=== PATIENT | female | born 1940 | race Caucasian/White ===

== ENCOUNTER 2024-05-30 12:38 | Emergency (ER) | payer MEDICARE, SELFPAY ==
[2024-05-30] VITALS (9 sets, daily range): BP systolic 162–180; BP diastolic 65–83; PULSE 70–99; RESP 16–19; TEMP 36.7–37.1; O2SAT 95–98; BMI 22.1
--- NOTE | 2024-05-30 12:55 | EDNOTE_ITS ---
<Statement entered by Hilda Dillon MD - 06/02/24 15:28> As co-signing physician, I was present and available for consult prn. I concur with the plan and care as documented by the midlevel provider. ED General RME/HPI General Chief complaint: Weakness Stated complaint: WEAKNESS Time Seen by Provider: 05/30/24 12:53 Arrival date/time: 05/30/24 12:38 CC: Weakness and chronic back pain HPI patient presents to the ER via EMS reports ports stable vital signs seen the patient has had generalized weakness. Along with chronic back pain that is 10 out of 10. The patient states she has arthritis in her spine and her pelvis. Patient was discharged 4 days ago from [facility] status post stroke, was not sent to rehab. Patient states that she is unable to get around secondary to weakness. Related Data Home Medications ?Medication ?Instructions ?Recorded ?Confirmed sucralfate 1 gram tablet (Carafate) 1 gm PO QID #0 tabs 03/03/17 05/30/24 alprazolam 0.5 mg tablet 0.25 mg PO TID 05/30/24 05/30/24 amiodarone 200 mg tablet 200 mg PO DAILY 05/30/24 05/30/24 apixaban 2.5 mg tablet (Eliquis) 2.5 mg PO BID 05/30/24 05/30/24 artificial tears solution eye drops 1 drp ophthalmic (eye) Q6HR 05/30/24 05/30/24 clopidogrel 75 mg tablet 75 mg PO DAILY 05/30/24 05/30/24 fluticasone furoate 100 100 mcg inhalation DAILY 05/30/24 05/30/24 mcg/actuation blister powder for inhalation ketoconazole 2 % topical cream 1 applic topical BID 05/30/24 05/30/24 meclizine 25 mg tablet 25 mg PO TID 05/30/24 05/30/24 meloxicam 15 mg tablet 15 mg PO DAILY 05/30/24 05/30/24 mirtazapine 15 mg tablet 15 mg PO QPM 05/30/24 05/30/24 ofloxacin 0.3 % eye drops 4 drp ophthalmic (eye) Q4HR 05/30/24 05/30/24 sennosides 8.6 mg-docusate sodium 2 tab-cap PO BID 05/30/24 05/30/24 50 mg tablet spironolactone 25 mg tablet 25 mg PO BID 05/30/24 05/30/24 zinc oxide 16 % topical ointment 1 applic topical BID 05/30/24 05/30/24 Previous Rx's ?Medication ?Instructions ?Recorded esomeprazole magnesium 20 mg 20 mg PO QDAY #30 caps 05/31/24 capsule,delayed release (Nexium) levothyroxine 100 mcg capsule 100 mcg PO QDAY #30 caps 05/31/24 ondansetron 4 mg disintegrating 4 mg PO TID #30 tabs 05/31/24 tablet Allergies Allergy/AdvReac Type Severity Reaction Status Date / Time bacitracin Allergy Unknown Verified 10/21/23 10:52 [From Neosporin ([id number])] milk Allergy Unknown Verified 10/21/23 10:52 neomycin Allergy Unknown Verified 10/21/23 10:52 [From Neosporin ([id number])] polymyxin B Allergy Unknown Verified 10/21/23 10:52 [From Neosporin ([id number])] Sulfa (Sulfonamide Allergy Unknown SWELLING Verified 10/21/23 10:52 Antibiotics) OF MUCOUS MEMBRANES Review of Systems Review of Systems Narrative Review of Systems: GEN: No fever, no chills, no weight loss EYES: No discharge, no visual changes, no pain HEENT: No ear pain, no congestion, no sore throat PULM: No shortness of breath, no cough, no congestion CV: No chest pain, no dyspnea on exertion, no palpitations GI: No nausea, no vomiting, no diarrhea, no pain, no constipation : No frequency, no urgency, no dysuria MUSC/SKEL: No joint pain, +back pain SKIN: No rash PSYCH: No hallucinations, no depression HEME/LYMPH: No easy bleeding or bruising tendencies NEURO: + weakness, no headache Past Medical History Past Medical History NEUROLOGIC: Positive Neurological Disorders and Cerebrovascular Accident (x3 ministrokes); Negative Seizures CARDIAC: Positive Cardiac Disorders, Atrial Fibrillation, Hypercholesterolemia and Hypertension; Negative Congestive Heart Failure RESPIRATORY: Positive Asthma (on bipap) and Pneumonia (1999); Negative Chronic Obstructive Pulmonary Disease (COPD) GASTROINTESTINAL: Positive Gastrointestinal Disorders and Ulcer; Negative Hepatitis GENITOURINARY: Positive Genitourinary Disorders (UTI); Negative Renal Disease REPRODUCTIVE: Positive Previous Pregnancies MUSCULOSKELETAL: Positive Musculoskeletal Disorders and Arthritis ENT: Positive Cataracts (right) ENDOCRINE: Positive Endocrine Disorders; Negative Diabetes Mellitus Type 1 or Diabetes Mellitus Type 2 HEMATOLOGIC: Negative Blood Disorders or Sickle Cell Disease PSYCHO/SOCIAL: Positive Anxiety (Panic attacks) OTHER HISTORY: Positive Hospitalization (CVA), Chicken Pox, Measles and Mumps; Negative Autoimmune Disease, Shingles, Blood Transfusions, Blood Transfusion Reaction, Anesthesia Reactions or Cancer Family History FAMILY HISTORY: Positive Family Cancer and Family Surgery; Negative Family Neurologic Problems, Family Psychiatric Problems, Family Respiratory Disorders, Family Cardiac Disorders, Family Gastrointestinal Problems or Family Anesthesia Reaction Surgical History SURGICAL: Positive Tonsillectomy, Abdominal Surgery and Hysterectomy Social History SMOKING STATUS: Unknown if ever smoked SUBSTANCE USE: does not use ED Exam Narrative Physical exam: [General: Thin, frail, not in any acute distress Head normocephalic HEENT: Eyes pupils are PERRLA EOMs are intact mouth dry pink membranes uvula is midline swallow symmetrical nose no rhinorrhea epistaxis. All other subsystems of HEENT are within acceptable limits Neck is supple nontender Chest equal chest rise nontender to palpation Respiratory: Clear to auscultation no wheezes crackles or rubs CV: Rate rhythm is irregular no murmurs rubs or clicks Abdomen is soft nontender no masses positive bowel sounds all 4 quadrants Back: No CVA tenderness no spinous process tenderness from cervical spine thoracic and lumbar spine Skin: Numerous ecchymotic areas on her forearms secondary to suspected IV access in various stages of resolution otherwise skin is intact no petechiae rash induration ulceration or crepitus Extremities: Moving all extremities weakly against resistance cap refill less than 2 seconds neurosensory intact Neuro: Awake alert oriented x2, person and place, Glascow coma 15 no focal deficits] Course Course Course Narrative: Patient has no acute finding that requires emergent or immediate intervention. Patient's case discussed with family patient is not comfortable going home as she is nonambulatory and has had trouble recovering since her hip fracture in October but particularly since discharge 3 days ago from [facility] for stroke. Spoke with case management who states the patient is eligible for placement. Order the PT eval which will probably take place in the morning of May 31. After 28 hours in the emergency room it was determined that the patient has exhausted all her options for home health stays. And nobody will accept her for long-term management at this time we are forced to discharge her home with a home health order, will refill some of the prescriptions for the patient she remains awake alert and oriented clear mind. Quality Measures none Orders Category Date Time Status Home Health Referral Routine Cons 05/31/24 16:08 Active Referral Physical Therapy Stat Cons 05/30/24 16:22 Completed Diet Regular Diet 05/31/24 Breakfast Active CBC Stat Lab 05/30/24 13:26 Completed CMP [Comprehensive Metabolic Panel] Stat Lab 05/30/24 13:26 Completed Urinalysis Stat Lab 05/30/24 15:18 Completed Urinalysis, C/S if Indicated Stat Lab 05/30/24 15:18 Completed HYDROcodone*/APAP 5/325 [[place]over 5/325] Med 05/31/24 06:56 Discontinued 1 tab PO X1 ONE HYDROcodone*/APAP 5/325 [Wendover 5/325] Med 05/31/24 12:25 Discontinued 1 tab PO X1 ONE Ondansetron Inj [Zofran Inj] Med 05/31/24 12:25 Discontinued 4 mg IV X1 ONE Ondansetron Odt [Zofran Odt] Med 05/30/24 16:43 Discontinued 4 mg PO X1 ONE Ondansetron Odt [Zofran Odt] Med 05/30/24 21:57 Discontinued 4 mg PO X1 ONE Ondansetron Odt [Zofran Odt] Med 05/31/24 12:51 Discontinued 4 mg PO X1 ONE oxyCODONE/APAP 5/325 [Percocet 5/325] Med 05/30/24 15:45 Discontinued 1 tab PO X1 ONE oxyCODONE/APAP 5/325 [Percocet 5/325] Med 05/30/24 21:57 Discontinued 1 tab PO X1 ONE Late Tray Request Routine Oth 05/31/24 08:34 Active Late Tray Request Routine Oth 05/31/24 12:51 Active Vital Signs Vital signs: Vital Signs Temperature 98.1 F 05/30/24 12:42 Pulse Rate 71 05/30/24 12:42 Respiratory Rate 18 05/30/24 12:42 Blood Pressure 180/65 H 05/30/24 12:42 Pulse Oximetry (%) 97 05/30/24 12:42 Oxygen Delivery Method Room Air 05/30/24 12:42 [facility] Patient data External records reviewed:: [facility] previous records and EMS form Clinical information provided by:: patient and EMS Social determinants that could affect healthcare access:: none Patient has the following chronic illnesses:: A-fib on Eliquis TIA coronary artery disease hypertension peptic ulcers disease rheumatoid arthritis anxiety agoraphobia recent hip fracture in October 2023 How is presenting disease/condition affected by chronic disease/condition?: e xacerbated by Evaluation data The following diagnostics were reviewed and interpreted by me:: lab results and radiology exam(s) Lab and/or radiology exams considered but not ordered:: CBC shows no acute leukocytosis anemia thrombocytopenia CMP shows no acute electrolyte imbalances renal impairment transaminitis or T. bili elevation Urine is negative for UTI Interpretation Summary: Upon reviewing the laboratory results that showed no acute finding the patient medially focused on her chronic back pain worse wishing pain medications. Family member at bedside states the patient sits on her couch all day. At this point as the patient freely admits there was no rehab hours left after discharge from [facility] secondary to a CVA. Medications Medications considered but not ordered:: None Medication administrations:: Medication Administration History Discontinued Medications Hydrocodone Bitart/Acetaminophen (Hydrocodone/Apap 5/325 Tablet) 1 tab PO X1 ONE Stop: 05/31/24 06:57 Last Admin: 05/31/24 07:02 Dose: 1 tab Documented By: EF Hydrocodone Bitart/Acetaminophen (Hydrocodone/Apap 5/325 Tablet) 1 tab PO X1 ONE Stop: 05/31/24 12:26 Last Admin: 05/31/24 12:48 Dose: 1 tab Documented By: MP Ondansetron HCl (Ondansetron Odt 4 Mg Tabrap) 4 mg PO X1 ONE; Protocol Stop: 05/30/24 16:44 Last Admin: 05/30/24 16:51 Dose: 4 mg Documented By: GM Ondansetron HCl (Ondansetron Odt 4 Mg Tabrap) 4 mg PO X1 ONE; Protocol Stop: 05/30/24 21:58 Last Admin: 05/30/24 22:05 Dose: 4 mg Documented By: EF Ondansetron HCl (Ondansetron Inj 2 Mg/Ml Inj 2 Ml) 4 mg IV X1 ONE; Protocol Stop: 05/31/24 12:26 Last Admin: 05/31/24 13:33 Dose: Not Given Documented By: BECKY Non-Admin Reason: No IV access Ondansetron HCl (Ondansetron Odt 4 Mg Tabrap) 4 mg PO X1 ONE; Protocol Stop: 05/31/24 12:52 Last Admin: 05/31/24 12:57 Dose: 4 mg Documented By: BECKY Oxycodone/Acetaminophen (Oxycodone/Apap 5/325 Tablet) 1 tab PO X1 ONE Stop: 05/30/24 15:46 Last Admin: 05/30/24 17:24 Dose: 1 tab Documented By: GM Oxycodone/Acetaminophen (Oxycodone/Apap 5/325 Tablet) 1 tab PO X1 ONE Stop: 05/30/24 21:58 Last Admin: 05/30/24 22:05 Dose: 1 tab Documented By: EF None Consultations Consultation(s) initiated? (list below): No Diagnosis Differential Diagnosis ED Complaint MDM: Deconditioning weakness electrolyte imbalance Most likely diagnosis given after review of the tests above:: Deconditioning weakness Admission Indicated Admission indicated?: not indicated Explain why admission is indicated or not indicated:: Stable for discharge Admission Request Was there a request for admission?: No Disposition Plan Disposition Plan: Discharge Discharge Attestation Discharge Attestation: The patient and all family members were given an opportunity to ask questions and understood the discharge instructions. Discharge instructions specifically effects, indications for sooner follow up or return to the emergency department, and the expected course of current diagnosis. Patient condition: Stable Medical Decision Making Differential Diagnosis Differential Diagnosis: Deconditioning weakness electrolyte imbalance Lab Data 05/30/24 13:26 05/30/24 13:26 Labs: Lab Results 05/30/24 05/30/24 Range/Units 13:26 15:18 WBC 9.1 (3.6-11.0) Thou/mm3 RBC 4.43 (4.00-5.20) Miln/mm3 Hgb 12.1 (12.0-16.0) g/dL Hct 36.5 (36.0-46.0) % MCV 82 (80-100) fL MCH 27.3 (25.0-35.0) pg MCHC 33.2 (31.0-37.0) g/dl RDW Std Deviation 46.6 H (36.4-46.3) fL Plt Count 482 H (140-440) Thou/mm3 Neut % (Auto) 77 (37-80) % Lymph % (Auto) 15 (10-50) % Gladwin % (Auto) 6 (0-12) % Eos % (Auto) 1 (0-10) % Baso % (Auto) 1 (0-2.5) % Neut # (Auto) 7.0 (1.8-7.7) Thou/mm3 Lymph # (Auto) 1.4 (1.0-4.8) Thou/mm3 Gladwin # (Auto) 0.6 (0.0-0.8) Thou/mm3 Eos # (Auto) 0.1 (0.0-0.5) Thou/mm3 Baso # (Auto) 0.1 (0.0-0.2) Thou/mm3 Immature Gran # (Auto) 0.03 H (0.00-0.00) Thou/mm3 Absolute Nucleated RBC 0.00 (0.00-0.00) Thou/mm3 Immature Gran % 0 (0-0) % Nucleated RBC % 0 (0) /100 WBC Sodium 134 L (136-145) mMol/L Potassium 3.8 (3.4-5.1) mMol/L Chloride 95 L (98-107) mMol/L Carbon Dioxide 29.8 (20.0-31.0) mMol/L Anion Gap 9 (7-16) BUN 19 (9-23) mg/dL Creatinine 1.4 H (0.6-1.3) mg/dL Estim Creat Clear Calc 28.0 L (>60) mL/min eGFR 37 L (60 - ) See Note BUN/Creatinine Ratio 14 (12-20) Ratio Glucose 91 (74-106) mg/dL Calculated Osmolality 270 L (275-295) Calcium 9.7 (8.3-10.6) mg/dL Corrected Calcium 9.7 (8.5-10.1) mg/dL Total Bilirubin 0.4 (0.3-1.2) mg/dL AST 28 (0-34) U/L ALT 20 (10-49) U/L Alkaline Phosphatase 101 (46-116) U/L Total Protein 7.3 (5.7-8.2) gm/dL Albumin 4.7 (3.4-4.8) gm/dL Globulin 2.6 (2.3-3.5) gm/dL Albumin/Globulin Ratio 1.8 (1.2-2.2) Ur Collection Type Clean Catch Urine Color Yellow (Lt Yel-Yel) Urine Clarity Clear (Clear/Hazy) Urine pH 6.0 (5.0-7.0) Ur Specific Woodson 1.016 (1.001-1.035) Urine Protein Trace (Neg - Trace) Urine Glucose (UA) Negative (Negative) Urine Ketones Trace (Negative) Urine Blood Negative (Negative) Urine Nitrite Negative (Negative) Urine Bilirubin Negative (Negative) Urine Urobilinogen (Auto) Negative (0.0-1.0) mg/dL Ur Leukocyte Esterase Negative (Negative) Urine RBC 3 (0-3) /hpf Urine WBC < 1 (0-5) /hpf Ur Squamous Epith Cells 0 (0-5) /hpf Urine Bacteria None (None) Ur Culture Indicated? Not Indicated Discharge Plan Plan Patient Disposition: HOME (Self Care) Patient condition on transfer: Stable Prescriptions/Referrals Prescriptions/Med Rec: New levothyroxine 100 mcg capsule 100 mcg PO QDAY Qty: 30 1RF esomeprazole magnesium [Nexium] 20 mg capsule,delayed release(DR/EC) 20 mg PO QDAY Qty: 30 1RF ondansetron 4 mg tablet,disintegrating 4 mg PO TID Qty: 30 1RF No Action sucralfate [Carafate] 1 G tablet 1 gm PO QID Qty: 0 ofloxacin 0.3 % drops 4 drp ophthalmic (eye) Q4HR Rx Instructions: APPLY 4 DROPS TO LEFT EYE EVERY 4 HOURS amiodarone 200 mg tablet 200 mg PO DAILY meloxicam 15 mg tablet 15 mg PO DAILY Patient Comments: TAKE 1 TABLET BY MOUTH EVERY DAY sennosides-docusate sodium [Sennalax-S] 8.6-50 mg Tablet 2 tab-cap PO BID artificial tears solution Drops 1 drp OPHTHALMIC (EYE) Q6HR clopidogrel 75 mg tablet 75 mg PO DAILY spironolactone 25 mg Tablet 25 mg PO BID meclizine 25 mg Tablet 25 mg PO TID mirtazapine 15 mg tablet 15 mg PO QPM ketoconazole 2 % Cream 1 applic TOPICAL BID zinc oxide 16 % Ointment 1 applic TOPICAL BID Eliquis 2.5 mg tablet 2.5 mg PO BID fluticasone furoate 100 mcg/actuation Blister With Device 100 mcg INHALATION DAILY alprazolam 0.5 mg tablet 0.25 mg PO TID Referrals: Gisele Ching MD [Primary Care Provider] - In 1 week Problem List Clinical Impression: Weakness, Physical deconditioning Patient/Caregiver Discharge Instructions Education Materials: ED Weakness (Uncertain Cause), Chronic Health Condition Coping Additional Instructions: Follow-up with your primary care provider Print Language: Hong Konger Stand Alone Forms: [employer] Award Info., Patient Portal Info Letter PA/CURTAIN CUTTER Supervising Physician PA/CURTAIN CUTTER Supervising Physician: Rios Sladana ENP
[2024-05-30 13:41] LABS: Basophils # (Auto) 0.1 Thou/mm3 (0.0-0.2); Basophils % (Auto) 1 % (0-2.5); Eosinophils # (Auto) 0.1 Thou/mm3 (0.0-0.5); Eosinophils % (Auto) 1 % (0-10); Hematocrit 36.5 % (36.0-46.0); Hemoglobin 12.1 g/dL (12.0-16.0); Immature Granulocytes % (Auto) 0 % (0-0); Immature Granulocytes Auto 0.03 Thou/mm3 (0.00-0.00); Lymphocytes # (Auto) 1.4 Thou/mm3 (1.0-4.8); Lymphocytes % (Auto) 15 % (10-50); Mean Corpuscular HGB Conc 33.2 g/dl (31.0-37.0); Mean Corpuscular Hemoglobin 27.3 pg (25.0-35.0); Mean Corpuscular Volume 82 fL (80-100); Monocytes # (Auto) 0.6 Thou/mm3 (0.0-0.8); Monocytes % (Auto) 6 % (0-12); Neutrophils % (Auto) 77 % (37-80); Nucleated Red Blood Cell % 0 /100 WBC (0); Platelet Count 482 Thou/mm3 (140-440); RDW Standard Deviation 46.6 fL (36.4-46.3); Red Blood Count 4.43 Miln/mm3 (4.00-5.20); White Blood Count 9.1 Thou/mm3 (3.6-11.0)
[2024-05-30 14:04] LABS: Alanine Aminotransferase 20 U/L (10-49); Albumin, Serum 4.7 gm/dL (3.4-4.8); Albumin/Globulin Ratio 1.8 (1.2-2.2); Alkaline Phosphatase 101 U/L (46-116); Anion Gap 9 (7-16); Aspartate Amino Transferase 28 U/L (0-34); BUN/Creatinine Ratio 14 Ratio (12-20); Bilirubin,Total 0.4 mg/dL (0.3-1.2); Blood Urea Nitrogen 19 mg/dL (9-23); Calcium 9.7 mg/dL (8.3-10.6); Calcium (Corrected) 9.7 mg/dL (8.5-10.1); Carbon Dioxide 29.8 mMol/L (20.0-31.0); Chloride 95 mMol/L (98-107); Creatinine (Component) 1.4 mg/dL (0.6-1.3); Globulin 2.6 gm/dL (2.3-3.5); Glucose 91 mg/dL (74-106); Osmolality,Calculated 270 (275-295); Potassium 3.8 mMol/L (3.4-5.1); Sodium 134 mMol/L (136-145); Total Protein 7.3 gm/dL (5.7-8.2); eGFR 37 See Note
--- NOTE | 2024-05-30 15:20 | PC.NURSE ---
PT HAD BM; PT GIVEN PERINEAL CARE WITH WARM BATH CLOTHS ANG LINEN CHANGE PERFORMED.
[2024-05-30 15:25] LABS: Collection Type, Urine Clean Catch; Squamous Epithelial Cell,Urine 0 /hpf (0-5)
[2024-05-30 15:31] LABS: Bilirubin,Urine Negative (Negative); Blood,Urine Negative (Negative); Clarity,Urine Clear (Clear/Hazy); Color,Urine Yellow (Lt Yel-Yel); Culture Indicated,Urine Not Indicated; Glucose, Urine Negative (Negative); Ketones,Urine Trace (Negative); Leukocyte Esterase,Urine Negative (Negative); Nitrite,Urine Negative (Negative); Protein,Urine Trace (Neg - Trace); RBC,Urine 3 /hpf (0-3); Specific Gravity,Urine 1.016 (1.001-1.035); Urobilinogen,Urine Negative mg/dL (0.0-1.0); WBC,Urine < 1 /hpf (0-5)
[2024-05-30] MEDS: ONDANSETRON ODT 4 MG TABRAP PO ×2 (16:51→22:05)
[2024-05-30] MEDS: oxyCODONE/APAP 5/325 TABLET 1 TAB PO ×2 (17:24→22:05)
--- NOTE | 2024-05-30 19:18 | PC.CC ---
Pt Lolis Ruvalcaba is an 83 yr old female to ED for weakness. ASW approached by ED provider Les, as pt is unable to ambulate and is a high fall risk. ASW informed that pt recently D/c from [facility] on 05/27/2024. ASW met with pt and daughter Vanessa Escobar [phone] at bedside. ASW introduced self and role in pt care. Per pts family pt was admitted to [facility] for the last 2 months and D/c home on 05/27/2024. Per pt and family pt has remained on her couch for the last 3 days being unable to ambulate. Per pt she was told at [facility] that she had exhausted her Medicare days and was being D/c. Per pt and her family SNF was not offered. ASW was able to attain copy of D/c packet from [facility]. Pts primary choice is [facility], where pt has been in the past. Per pts family members pt has been awarded [facility] pending number assignment at this time. Family inquired about usp placement. ASW informed family that initial request will be for short term placement, with potential for usp, pending bed availability. Family in agreement with plan. Pt is pending PT eval. PASRR pending Level II clearance. Pt with hx of anxiety on medication. No hx of DD/ID, no involvement with [facility].
--- NOTE | 2024-05-30 21:40 | PC.NURSE ---
PT BRIEF AND LINEN CHANGED. PT PLACED ON WAFFLE MATTRESS FOR COMFORT.
[2024-05-31] VITALS (9 sets, daily range): BP systolic 129–162; BP diastolic 63–85; PULSE 64–71; RESP 16–20; TEMP 36.8–36.9; O2SAT 94–98
--- NOTE | 2024-05-31 00:31 | PD.EDADDENDU ---
Emergency Room Addendum Addendum Narrative: 2300: Care assumed from Rios Saldana NP. Past medical, surgical, social and family history reviewed. Vitals and home medications reviewed. Results and treatment plan discussed. I will assume the care of the patient at this time and will follow the patient, pending PT evaluation and SNF placement. Please refer to the emergency department record for history and examination from initial visit. The patient was placed in ED observation care at 05/30/24 at 2300 hours. The patient was placed in ED observation care because of pending PT evaluation and SNF placement. The patients past medical history, social history, and family history were reviewed. The plan of care will include serial examinations. 0600: Care signed out to Dr. Dillon (emergency physician). Past medical, surgical, social and family history reviewed. Vitals and home medications reviewed. Results and treatment plan discussed. They will assume the care of the patient at this time and will follow the patient, pending PT evaluation and SNF placement. At this time, observation has ended.
--- NOTE | 2024-05-31 06:56 | PD.EDADDENDU ---
Emergency Room Addendum <Thea Pizarro - Last Filed: 05/31/24 09:56> Addendum Narrative: 0600: Care assumed from , the previous shift emergency physician. Past medical, surgical, social and family history reviewed. Vitals and home medications reviewed. I will assume the care of the patient at this time, pending PT evaluation for possible placement. Please refer to the emergency department record for history and examination from initial visit.? Nursing notes reviewed by me. Vital signs reviewed by me. [facility] medical records reviewed by me. I reviewed initial H&P from yesterday 05/30/2024. <Marlena Leone - Last Filed: 05/31/24 19:17> Addendum Narrative: 0600: Care assumed from , the previous shift emergency physician. Past medical, surgical, social and family history reviewed. Vitals and home medications reviewed. I will assume the care of the patient at this time, pending PT evaluation for possible placement. Please refer to the emergency department record for history and examination from initial visit.? Nursing notes reviewed by me. Vital signs reviewed by me. [facility] medical records reviewed by me. I reviewed initial H&P from yesterday 05/30/2024. 1845: Patient was discharged, EMS picked up the patient. Diagnoses: Weakness, physical deconditioning.
[2024-05-31] MEDS: HYDROcodone/APAP 5/325 TABLET 1 TAB PO ×2 (07:02→12:48)
--- NOTE | 2024-05-31 07:32 | PC.CC ---
Addendum entered by Lanre Purdy II 05/31/24 18:50: Home Health referral booked with [facility]-pending SOC. DME-wheelchair accepted by [facility]. Delivery 06/01/24. Addendum entered by Lanre Purdy II 05/31/24 18:48: 1027-ASW spoke with Mayda with [facility]-no custodial care bed available. Per Mayda she will follow up with ASW if [facility] is able to accommodate placement. Addendum entered by Lanre Purdy II 05/31/24 18:34: 1332-Message left for [facility]. 1340-Call back from [facility]-Level II cleared. Pt accepted to [facility]-presented to pt and pt accepts placement. 1441-Call to [facility] to confirm acceptance. Request that ASW confirm pt has cleared 60 Wellness days outside of. ASW met with pt and her daughter at bedside. Pt placed at [facility] in 11/2023 and remained in [facility] for 100 days. Pt then transitioned home where she remained for a few weeks. Pt then admitted to [facility] following stroke, where pt remained for 60 days D/cing 05/27/24 to her home. 1433-Call to [facility], who states [facility] unable to accept for custodial due to no beds. ASW asked pt registration to run pts [facility]. Pts [facility] is active with no policy number assigned at this time. ASW again met with pt and family at bedside to provide update. ASW at this time offered pt transport home, home health referral and DME request for 3-in 1 commode and wheel chair. Pt and family are agreeable to plan. Family is aware that pt is able to return to ED at any time for any medical concerns. Family has been educated that pt will need 60 Wellness days outside of an acute care setting and SNF for Medicare days to renew. 1632-Call to [facility] for transport. 1654-Call from [facility] with 1845 transport ETA. Original Note: Pt Lolis Ruvalcaba is an 83 yr old female, holding in ED for SNF placement. Pt had recent 60 day stay at [facility] following stroke. Pt D/c home on 05/27/24. Pt experienced increased weakness and was unable to get off her couch for last 3 days. Pt and family are requesting SNF placement for rehab and potential moth exterminator placement. PASRR has been completed pending Level II clearance. Clinical packet has been uploaded to [facility]. [facility] is currently considering-inquired if pt has been hospitalized within the last 30 days. ASW responded to inquiry. Pt pending PT eval in ED this morning.
--- NOTE | 2024-05-31 09:00 | PC.NURSE ---
PT at bedside for eval.
[2024-05-31] MEDS: ONDANSETRON ODT 4 MG TABRAP PO ×2 (12:57→18:38)
--- NOTE | 2024-05-31 16:03 | PC.CC ---
Patients diagnosis creates mobility limitations that significantly impairs ability to participate in the patient?s activities of daily living either in their entirety, or in a reasonable time frame in the home and the patient?s mobility limitations cannot be sufficiently resolved with an appropriately fitted cane or walker. Also the use of a manual wheelchair will sufficiently improve patient?s ability to participate in the activities of daily living in the home and the patient is willing to use the wheelchair that is provided in the home. The patient has some one in the home that is available, willing and able to provide assistance with the wheelchair.
--- NOTE | 2024-05-31 16:04 | PC.CC ---
Patient is physically incapable of utilizing regular toilet facilities because his or her diagnosis confines the patient to a single room. Patient is confined to a single level, and there is no toilet on that level; patient cannot access the toilet facilities in a timely manner due to lack of ambulation.
== END 2024-05-31 19:07 | disposition home or self-care (01) ==
PROVIDERS: Registered Nurse General Practice; Emergency Provider Emergency Medicine; PCP Family Medicine
DX: R53.1 Weakness (principal); M47.9 Spondylosis, unspecified; Z86.73 Personal history of transient ischemic attack (TIA), and cerebral infarction without residual deficits
CPT/HCPCS: 36415; 80053; 81001; 85025; 99284; J2405; Q0162; A9270

== ENCOUNTER 2024-06-07 12:38 | Emergency (ER) | payer MEDICARE, MEDICAID, SELFPAY ==
[2024-06-07 12:39] VITALS: PULSE 76; RESP 16; O2SAT 98
[2024-06-07 13:08] VITALS: BP 147/78; PULSE 76; RESP 16; TEMP 37; O2SAT 96
--- NOTE | 2024-06-07 13:19 | XR_ITS ---
Examination: CT lumbar spine, without contrast. 2-D sagittal reconstructions. 2-D coronal reconstructions. 3-D reconstructions. Date and time of exam:June 07, 2024 1351 hours INDICATIONS: Onset lower back pain beginning 3 days ago CTDI: vol (mGy):14.8 DLP: (mGycm):489 Technique: Multiple 1.25 mm axial sections of the lumbar spine without intravenous contrast have been obtained. 2-D sagittal and coronal reconstructions have been obtained. 3-D reconstructions have been obtained. Low dose protocols were performed. One or more of the following dose reduction techniques were used; automated exposure control, adjustment of the mA and/or KV according to patient size, use of iterative reconstruction technique. Findings: Severe osteopenia Grade 1 anterolisthesis L4 on L5 Moderate disc narrowing L5-S1 No lumbar vertebral body compression fracture Lumbar pedicles, laminae, transverse and posterior spinous processes intact L5-S1 2 mm central lumbar disc bulge L4-L5 moderate overall spinal stenosis, secondary to the anterolisthesis, 6 mm central lumbar disc bulge, facet arthropathy and thickening of ligamentum flavum L3-L4 no disc protrusion L2-L3 no disc protrusion L1-L2 no disc protrusion Small benign lower pole left renal cyst IMPRESSION: No lumbar fracture L4-L5 moderate overall spinal stenosis secondary to grade 1 anterolisthesis, 6 mm central lumbar disc bulge, facet arthropathy and thickening of ligamentum flavum Consider elective MRI lumbar spine without contrast follow-up
--- NOTE | 2024-06-07 13:20 | PD.EDRME ---
Rapid Medical Screening Exam RME Arrival date/time: 06/07/24 12:38 83-year-old female presents emerged part today complaints of pain patient reports pain is worse with movement patient is here with her family who is requesting to have placement in a long-term care facility Vital signs: Vital Signs Temperature 98.6 F 06/07/24 13:08 Pulse Rate 76 06/07/24 13:08 Respiratory Rate 16 06/07/24 13:08 Blood Pressure 147/78 H 06/07/24 13:08 Pulse Oximetry (%) 96 06/07/24 13:08 Oxygen Delivery Method Room Air 06/07/24 13:08
[2024-06-07] MEDS: HYDROcodone/APAP 5/325 TABLET 1 TAB PO ×2 (14:08→22:47)
[2024-06-07 15:48] LABS: Collection Type, Urine Clean Catch
[2024-06-07 15:48] LABS: Basophils # (Auto) 0.1 Thou/mm3 (0.0-0.2); Basophils % (Auto) 1 % (0-2.5); Eosinophils # (Auto) 0.1 Thou/mm3 (0.0-0.5); Eosinophils % (Auto) 1 % (0-10); Hemoglobin 12.4 g/dL (12.0-16.0); Immature Granulocytes % (Auto) 0 % (0-0); Immature Granulocytes Auto 0.04 Thou/mm3 (0.00-0.00); Lymphocytes # (Auto) 1.8 Thou/mm3 (1.0-4.8); Lymphocytes % (Auto) 16 % (10-50); Mean Corpuscular HGB Conc 33.5 g/dl (31.0-37.0); Mean Corpuscular Hemoglobin 27.2 pg (25.0-35.0); Mean Corpuscular Volume 81 fL (80-100); Monocytes # (Auto) 0.7 Thou/mm3 (0.0-0.8); Monocytes % (Auto) 6 % (0-12); Neutrophils # (Auto) 8.4 Thou/mm3 (1.8-7.7); Neutrophils % (Auto) 76 % (37-80); Nucleated Red Blood Cell % 0 /100 WBC (0); Platelet Count 425 Thou/mm3 (140-440); RDW Standard Deviation 48.4 fL (36.4-46.3); Red Blood Count 4.56 Miln/mm3 (4.00-5.20); White Blood Count 11.1 Thou/mm3 (3.6-11.0)
[2024-06-07 16:12] LABS: Alanine Aminotransferase 13 U/L (10-49); Albumin, Serum 4.7 gm/dL (3.4-4.8); Albumin/Globulin Ratio 1.7 (1.2-2.2); Alkaline Phosphatase 81 U/L (46-116); Anion Gap 10 (7-16); Aspartate Amino Transferase 24 U/L (0-34); BUN/Creatinine Ratio 16 Ratio (12-20); Bilirubin,Total 0.3 mg/dL (0.3-1.2); Blood Urea Nitrogen 23 mg/dL (9-23); Calcium 9.3 mg/dL (8.3-10.6); Calcium (Corrected) 9.3 mg/dL (8.5-10.1); Carbon Dioxide 26.7 mMol/L (20.0-31.0); Chloride 95 mMol/L (98-107); Creatinine (Component) 1.4 mg/dL (0.6-1.3); Globulin 2.8 gm/dL (2.3-3.5); Glucose 111 mg/dL (74-106); Osmolality,Calculated 269 (275-295); Potassium 3.6 mMol/L (3.4-5.1); Sodium 132 mMol/L (136-145); Total Protein 7.5 gm/dL (5.7-8.2); eGFR 37 See Note
[2024-06-07 16:14] LABS: Bacteria,Urine 1+; Bilirubin,Urine Negative (Negative); Blood,Urine 1+ (Negative); Color,Urine Yellow (Lt Yel-Yel); Glucose, Urine Negative (Negative); Ketones,Urine Negative (Negative); Leukocyte Esterase,Urine Positive (Negative); Nitrite,Urine Negative (Negative); PH,Urine 8.5 (5.0-7.0); Protein,Urine 2+ (Neg - Trace); RBC,Urine 58 /hpf (0-3); Specific Gravity,Urine 1.022 (1.001-1.035); Squamous Epithelial Cell,Urine 1 /hpf (0-5); Urobilinogen,Urine Negative mg/dL (0.0-1.0); WBC,Urine 114 /hpf (0-5)
[2024-06-07 16:17] LABS: Clarity,Urine Turbid (Clear/Hazy); Culture Indicated,Urine Yes
[2024-06-07 17:24] VITALS: BP 164/89; PULSE 72; RESP 18; TEMP 36.6; O2SAT 98
--- NOTE | 2024-06-07 17:28 | PC.CC ---
Pt Lolis Ruvalcaba is an 83 yr old female to ED for generalized weakness. Pt seen in ED last week by ASW with family and pt requesting [facility] placement. At the time pt had no Medicare days available. Pts applied and was granted [employer], which is now active. Pt and family are requesting [facility] care placement. At this time pt still has no Medicare days available. From my last encounter pt would like to remain local, but ASW has explained that pt may need to agree for senior living care bed outside of [facility]. Pt has been to [facility] and that is pts primary choice for placement.
--- NOTE | 2024-06-07 19:17 | PD.EDADULT ---
ED General RME/HPI General Chief complaint: Weakness Stated complaint: GENERALIZED WEAKNESS/PAIN/NO SLEEP Time Seen by Provider: 06/07/24 19:18 Arrival date/time: 06/07/24 12:38 Limitations: no limitations RME / HPI RME / HPI narrative: 06/07/24 12:38 83-year-old female presents emerged part today complaints of pain patient reports pain is worse with movement patient is here with her family who is requesting to have placement in a long-term care facility DR. HAWKINS MAIN ED EVALUATION: 83 year old female presents to the Emergency Department BIBA for placement. She was at a long-term care at [facility] for hip fracture but they released her due to medical insurance problems and at home she cannot take care of herself and there is no one to care for the patient at home. Patient cannot bear weight and is incontinent, wears a diaper. No new trauma. Takes [place] for chronic back pain and chronic hip pain. PMHx: Atrial fibrillation on Eliquis, recent diagnosis of coccidiomycosis, TIA, coronary artery disease, hypertension, peptic ulcer disease, rheumatoid arthritis, anxiety, agoraphobia. Social Hx: No tobacco, alcohol, or substance use. Related Data Home Medications ?Medication ?Instructions ?Recorded ?Confirmed sucralfate 1 gram tablet (Carafate) 1 gm PO QID #0 tabs 03/03/17 05/30/24 alprazolam 0.5 mg tablet 0.25 mg PO TID 05/30/24 05/30/24 amiodarone 200 mg tablet 200 mg PO DAILY 05/30/24 05/30/24 apixaban 2.5 mg tablet (Eliquis) 2.5 mg PO BID 05/30/24 05/30/24 artificial tears solution eye drops 1 drp ophthalmic (eye) Q6HR 05/30/24 05/30/24 clopidogrel 75 mg tablet 75 mg PO DAILY 05/30/24 05/30/24 fluticasone furoate 100 100 mcg inhalation DAILY 05/30/24 05/30/24 mcg/actuation blister powder for inhalation ketoconazole 2 % topical cream 1 applic topical BID 05/30/24 05/30/24 meclizine 25 mg tablet 25 mg PO TID 05/30/24 05/30/24 meloxicam 15 mg tablet 15 mg PO DAILY 05/30/24 05/30/24 mirtazapine 15 mg tablet 15 mg PO QPM 05/30/24 05/30/24 ofloxacin 0.3 % eye drops 4 drp ophthalmic (eye) Q4HR 05/30/24 05/30/24 sennosides 8.6 mg-docusate sodium 2 tab-cap PO BID 05/30/24 05/30/24 50 mg tablet spironolactone 25 mg tablet 25 mg PO BID 05/30/24 05/30/24 zinc oxide 16 % topical ointment 1 applic topical BID 05/30/24 05/30/24 Previous Rx's ?Medication ?Instructions ?Recorded esomeprazole magnesium 20 mg 20 mg PO QDAY #30 caps 05/31/24 capsule,delayed release (Nexium) levothyroxine 100 mcg capsule 100 mcg PO QDAY #30 caps 05/31/24 ondansetron 4 mg disintegrating 4 mg PO TID #30 tabs 05/31/24 tablet Allergies Allergy/AdvReac Type Severity Reaction Status Date / Time bacitracin Allergy Severe Swelling Verified 06/07/24 12:43 [From Neosporin of ([id number])] Lip/Tongue/Throat milk Allergy Severe Swelling Verified 06/07/24 12:43 of Lip/Tongue/Throat neomycin Allergy Severe Swelling Verified 06/07/24 12:43 [From Neosporin of ([id number])] Lip/Tongue/Throat polymyxin B Allergy Severe Swelling Verified 06/07/24 12:43 [From Neosporin of ([id number])] Lip/Tongue/Throat Sulfa (Sulfonamide Allergy Severe SWELLING Verified 06/07/24 12:43 Antibiotics) OF MUCOUS MEMBRANES Review of Systems Review of Systems Systems Reviewed: All systems reviewed, normal except as documented Narrative Review of Systems: GEN: No fever, no chills, no weight loss EYES: No discharge, no visual changes, no pain HEENT: No ear pain, no congestion, no sore throat PULM: No shortness of breath, no cough, no congestion CV: No chest pain, no dyspnea on exertion, no palpitations GI: No nausea, no vomiting, no diarrhea, no pain, no constipation : No frequency, no urgency and no dysuria MUSC/SKEL: + chronic hip pain, + chronic back pain SKIN: No rash PSYCH: No hallucinations, no depression HEME/LYMPH: No easy bleeding or bruising tendencies NEURO: No weakness, no headache Past Medical History Past Medical History NEUROLOGIC: Positive Neurological Disorders and Cerebrovascular Accident; Negative Seizures CARDIAC: Positive Cardiac Disorders, Atrial Fibrillation, Hypercholesterolemia and Hypertension; Negative Congestive Heart Failure RESPIRATORY: Positive Asthma and Pneumonia; Negative Chronic Obstructive Pulmonary Disease (COPD) GASTROINTESTINAL: Positive Gastrointestinal Disorders and Ulcer; Negative Hepatitis GENITOURINARY: Positive Genitourinary Disorders; Negative Renal Disease REPRODUCTIVE: Positive Previous Pregnancies MUSCULOSKELETAL: Positive Musculoskeletal Disorders and Arthritis ENT: Positive Cataracts ENDOCRINE: Positive Endocrine Disorders; Negative Diabetes Mellitus Type 1 or Diabetes Mellitus Type 2 HEMATOLOGIC: Negative Blood Disorders or Sickle Cell Disease PSYCHO/SOCIAL: Positive Anxiety OTHER HISTORY: Positive Hospitalization, Chicken Pox, Measles and Mumps; Negative Autoimmune Disease, Shingles, Blood Transfusions, Blood Transfusion Reaction, Anesthesia Reactions or Cancer Family History FAMILY HISTORY: Positive Family Cancer and Family Surgery; Negative Family Neurologic Problems, Family Psychiatric Problems, Family Respiratory Disorders, Family Cardiac Disorders, Family Gastrointestinal Problems or Family Anesthesia Reaction Surgical History SURGICAL: Positive Tonsillectomy, Abdominal Surgery and Hysterectomy Social History SMOKING STATUS: Never smoker SUBSTANCE USE: does not use ED Exam General Limitations: Present no limitations General appearance: Present alert and in no apparent distress Head Head exam: Present atraumatic, normocephalic and normal inspection Eye Eye exam: Present normal appearance, PERRL and EOMI ENT ENT exam: Present normal exam, normal oropharynx and mucous membranes moist Neck Neck exam: Present normal inspection, full ROM and trachea midline Chest Chest inspection: Present normal inspection and symmetric chest wall rise Respiratory Respiratory exam: Present normal lung sounds bilaterally Cardiovascular Cardiovascular exam: Present regular rate, normal rhythm and normal heart sounds Abdominal Exam Abdominal exam: Present soft and normal bowel sounds Extremities Exam Extremities exam: Present normal inspection and pedal edema Back Exam Back exam: Present normal inspection Neurological Exam Neurological exam: Present alert, oriented X3 and CN II-XII intact Psychiatric Psychiatric exam: Present normal affect and normal mood Skin Skin exam: Present warm, dry, intact and normal color Course Course Course Narrative: OBSERVATION NOTE: The patient was placed in ED observation care at 06/08/24 at 0022 hours. The patient was placed in ED observation care because of pending PT evaluation and SNF placement. The patients past medical history, social history, and family history were reviewed. 0600: Care signed out to Dr. Cohen (emergency physician). Past medical, surgical, social and family history reviewed. Vitals and home medications reviewed. Results and treatment plan discussed. They will assume the care of the patient at this time and will follow the patient, pending PT evaluation and SNF placement. At this time, observation has ended. Quality Measures none Orders Category Date Time Status Consult [employer] X1 Care 06/08/24 00:22 Active Referral Physical Therapy Stat Cons 06/07/24 13:19 Completed Referral Physical Therapy Stat Cons 06/08/24 00:[address] lumbar spine wo con Stat Exams 06/07/24 13:19 Completed CBC Routine Lab 06/07/24 15:41 Completed Comprehensive Metabolic Panel Routine Lab 06/07/24 15:41 Completed UA, C/S IF [Urinalysis, C/S if Indicated] Stat Lab 06/07/24 15:40 Completed Urine Culture Stat Lab 06/07/24 15:40 Received ALPRazoLAM [Xanax] Med 06/07/24 19:17 Discontinued 0.5 mg PO X1 ONE Amiodarone [Cordarone] Med 06/08/24 05:54 Discontinued 200 mg PO X1 ONE Apixaban [Eliquis] Med 06/08/24 05:57 Discontinued 2.5 mg PO X1 ONE Clopidogrel [Plavix] Med 06/08/24 05:55 Discontinued 75 mg PO X1 ONE Clopidogrel [Plavix] Med 06/08/24 05:58 Discontinued 75 mg PO X1 ONE HYDROcodone*/APAP 5/325 [[place] 5/325] Med 06/08/24 05:58 Active 1 tab PO Q6HR PRN HYDROcodone*/APAP 5/325 [[place] 5/325] Med 06/07/24 13:19 Discontinued 1 tab PO X1 ONE HYDROcodone*/APAP 5/325 [[place] 5/325] Med 06/07/24 19:16 Discontinued 1 tab PO X1 ONE Levothyroxine Sodium [Synthroid] Med 06/08/24 05:56 Discontinued 100 mcg PO X1 ONE Ondansetron Odt [Zofran Odt] Med 06/08/24 05:59 Active 4 mg PO TID PRN Pantoprazole [Protonix] Med 06/08/24 05:56 Discontinued 20 mg PO X1 ONE Spironolactone [Aldactone] Med 06/08/24 06:00 Discontinued 25 mg PO X1 ONE amLODIPine BESYLATE [Norvasc] Med 06/08/24 05:55 Discontinued 5 mg PO X1 ONE Vital Signs Vital signs: Vital Signs Temperature 98.6 F 06/07/24 13:08 Pulse Rate 76 06/07/24 13:08 Respiratory Rate 16 06/07/24 13:08 Blood Pressure 147/78 H 06/07/24 13:08 Pulse Oximetry (%) 96 06/07/24 13:08 Oxygen Delivery Method Room Air 06/07/24 13:08 [facility] Patient data External records reviewed:: [facility] previous records (Reviewed last ED visit dated 05/31/24, discharged with the following: Physical deconditioning.) and EMS form Clinical information provided by:: patient, EMS and family Social determinants that could affect healthcare access:: none Patient has the following chronic illnesses:: Atrial fibrillation on Eliquis, recent diagnosis of coccidiomycosis, TIA, coronary artery disease, hypertension, peptic ulcer disease, rheumatoid arthritis, anxiety, agoraphobia. How is presenting disease/condition affected by chronic disease/condition?: exacerbated by Evaluation data The following diagnostics were reviewed and interpreted by me:: lab results and radiology exam(s) Lab and/or radiology exams considered but not ordered:: none Interpretation Summary: Procedure(s): CT lumbar spine [facility] Accession Number(s): [id number] cc: Jeff (GARY),Larry VEGA; Parminder Edwards MD; Gisele Lynne MD~ Examination: CT lumbar spine, without contrast. 2-D sagittal reconstructions. 2-D coronal reconstructions. 3-D reconstructions. Date and time of exam:June 07, 2024 1351 hours INDICATIONS: Onset lower back pain beginning 3 days ago CTDI: vol (mGy):14.8 DLP: (mGycm):489 Technique: Multiple 1.25 mm axial sections of the lumbar spine without intravenous contrast have been obtained. 2-D sagittal and coronal reconstructions have been obtained. 3-D reconstructions have been obtained. Low dose protocols were performed. One or more of the following dose reduction techniques were used; automated exposure control, adjustment of the mA and/or KV according to patient size, use of iterative reconstruction technique. Findings: Severe osteopenia Grade 1 anterolisthesis L4 on L5 Moderate disc narrowing L5-S1 No lumbar vertebral body compression fracture Lumbar pedicles, laminae, transverse and posterior spinous processes intact L5-S1 2 mm central lumbar disc bulge L4-L5 moderate overall spinal stenosis, secondary to the anterolisthesis, 6 mm central lumbar disc bulge, facet arthropathy and thickening of ligamentum flavum L3-L4 no disc protrusion L2-L3 no disc protrusion L1-L2 no disc protrusion Small benign lower pole left renal cyst IMPRESSION: No lumbar fracture L4-L5 moderate overall spinal stenosis secondary to grade 1 anterolisthesis, 6 mm central lumbar disc bulge, facet arthropathy and thickening of ligamentum flavum Consider elective MRI lumbar spine without contrast follow-up Dictated By: Parminder Edwards MD Medications Medications considered but not ordered:: none Medication administrations:: Medication Administration History Hydrocodone Bitart/Acetaminophen (Hydrocodone/Apap 5/325 Tablet) 1 tab PO Q6HR PRN PRN Reason: Chronic pain Stop: 06/13/24 05:57 Ondansetron HCl (Ondansetron Odt 4 Mg Tabrap) 4 mg PO TID PRN; Protocol PRN Reason: NAUSEA OR VOMITING Stop: 07/08/24 05:59 Discontinued Medications Hydrocodone Bitart/Acetaminophen (Hydrocodone/Apap 5/325 Tablet) 1 tab PO X1 ONE Stop: 06/07/24 13:20 Last Admin: 06/07/24 14:08 Dose: 1 tab Documented By: [facility]CO Hydrocodone Bitart/Acetaminophen (Hydrocodone/Apap 5/325 Tablet) 1 tab PO X1 ONE Stop: 06/07/24 19:17 Last Admin: 06/07/24 22:47 Dose: 1 tab Documented By: MADONNA Alprazolam (Alprazolam 0.25 Mg Tablet) 0.5 mg PO X1 ONE Stop: 06/07/24 19:18 Last Admin: 06/07/24 22:46 Dose: 0.5 mg Documented By: MADONNA Amiodarone HCl (Amiodarone Hcl 200 Mg Tablet) 200 mg PO X1 ONE Stop: 06/08/24 05:55 Amlodipine Besylate (Amlodipine Besylate 5 Mg Tablet) 5 mg PO X1 ONE Stop: 06/08/24 05:56 Apixaban (Apixaban 2.5 Mg Tablet) 2.5 mg PO X1 ONE Stop: 06/08/24 05:58 Clopidogrel Bisulfate (Clopidogrel Bisulfate 75 Mg Tablet) 75 mg PO X1 ONE Stop: 06/08/24 05:56 Clopidogrel Bisulfate (Clopidogrel Bisulfate 75 Mg Tablet) 75 mg PO X1 ONE Stop: 06/08/24 05:59 Levothyroxine Sodium (Levothyroxine Sodium 100 Mcg Tablet) 100 mcg PO X1 ONE Stop: 06/08/24 05:57 Pantoprazole Sodium (Pantoprazole 20 Mg Tablet) 20 mg PO X1 ONE Stop: 06/08/24 05:57 Spironolactone (Spironolactone 25 Mg Tablet) 25 mg PO X1 ONE Stop: 06/08/24 06:01 see above Consultations Consultation(s) initiated? (list below): No Diagnosis Differential Diagnosis ED Complaint MDM: placement, acute on chronic hip pain, failure to thrive Most likely diagnosis given after review of the tests above:: see below Admission Indicated Admission indicated?: not indicated Explain why admission is indicated or not indicated:: Admission criteria not met. Admission Request Was there a request for admission?: No Disposition Plan Disposition Plan: other (specify) (Signed out to Dr. Cohen at 0600 pending PT evaluation and SNF placement.) Medical Decision Making MDM Narrative MDM Narrative: IMarlena, am scribing for and in the presence of Dr. Hawkins. Differential Diagnosis Differential Diagnosis: placement, acute on chronic hip pain, failure to thrive Lab Data 06/07/24 15:41 06/07/24 15:41 Labs: Lab Results 06/07/24 06/07/24 06/07/24 Range/Units 14:06 15:40 15:41 WBC Cancelled 11.1 H RBC Cancelled 4.56 Hgb Cancelled 12.4 Hct Cancelled 37.0 MCV Cancelled 81 MCH Cancelled 27.2 MCHC Cancelled 33.5 RDW Std Deviation Cancelled 48.4 H Plt Count Cancelled 425 D Neut % (Auto) Cancelled 76 Lymph % (Auto) Cancelled 16 Mcleod % (Auto) Cancelled 6 Eos % (Auto) Cancelled 1 Baso % (Auto) Cancelled 1 Neut # (Auto) Cancelled 8.4 H Lymph # (Auto) Cancelled 1.8 Mcleod # (Auto) Cancelled 0.7 Eos # (Auto) Cancelled 0.1 Baso # (Auto) Cancelled 0.1 Immature Gran # (Auto) Cancelled 0.04 H Absolute Nucleated RBC Cancelled 0.00 Immature Gran % Cancelled 0 Nucleated RBC % Cancelled 0 Sodium Cancelled 132 L Potassium Cancelled 3.6 Chloride Cancelled 95 L Carbon Dioxide Cancelled 26.7 Anion Gap Cancelled 10 BUN Cancelled 23 Creatinine Cancelled 1.4 H Estim Creat Clear Calc Cancelled Not Performed. eGFR Cancelled 37 L BUN/Creatinine Ratio Cancelled 16 Glucose Cancelled 111 H Calculated Osmolality Cancelled 269 L Calcium Cancelled 9.3 Corrected Calcium Cancelled 9.3 Total Bilirubin Cancelled 0.3 AST Cancelled 24 ALT Cancelled 13 Alkaline Phosphatase Cancelled 81 Total Protein Cancelled 7.5 Albumin Cancelled 4.7 Globulin Cancelled 2.8 Albumin/Globulin Ratio Cancelled 1.7 Ur Collection Type Clean Catch Urine Color Yellow (Lt Yel-Yel) Urine Clarity Turbid A (Clear/Hazy) Urine pH 8.5 H (5.0-7.0) Ur Specific Donner 1.022 (1.001-1.035) Urine Protein 2+ A (Neg - Trace) Urine Glucose (UA) Negative (Negative) Urine Ketones Negative (Negative) Urine Blood 1+ A (Negative) Urine Nitrite Negative (Negative) Urine Bilirubin Negative (Negative) Urine Urobilinogen (Auto) Negative (0.0-1.0) mg/dL Ur Leukocyte Esterase Positive (Negative) Urine RBC 58 H (0-3) /hpf Urine WBC 114 H (0-5) /hpf Ur Squamous Epith Cells 1 (0-5) /hpf Urine Bacteria 1+ A (None) Ur Culture Indicated? Yes Discharge Plan Plan Patient condition on transfer: Stable Prescriptions/Referrals Prescriptions/Med Rec: No Action sucralfate [Carafate] 1 G tablet 1 gm PO QID Qty: 0 ofloxacin 0.3 % drops 4 drp ophthalmic (eye) Q4HR Rx Instructions: APPLY 4 DROPS TO LEFT EYE EVERY 4 HOURS amiodarone 200 mg tablet 200 mg PO DAILY meloxicam 15 mg tablet 15 mg PO DAILY Patient Comments: TAKE 1 TABLET BY MOUTH EVERY DAY sennosides-docusate sodium [Sennalax-S] 8.6-50 mg Tablet 2 tab-cap PO BID artificial tears solution Drops 1 drp OPHTHALMIC (EYE) Q6HR clopidogrel 75 mg tablet 75 mg PO DAILY spironolactone 25 mg Tablet 25 mg PO BID meclizine 25 mg Tablet 25 mg PO TID mirtazapine 15 mg tablet 15 mg PO QPM ketoconazole 2 % Cream 1 applic TOPICAL BID zinc oxide 16 % Ointment 1 applic TOPICAL BID Eliquis 2.5 mg tablet 2.5 mg PO BID fluticasone furoate 100 mcg/actuation Blister With Device 100 mcg INHALATION DAILY alprazolam 0.5 mg tablet 0.25 mg PO TID levothyroxine 100 mcg capsule 100 mcg PO QDAY Qty: 30 1RF esomeprazole magnesium [Nexium] 20 mg capsule,delayed release(DR/EC) 20 mg PO QDAY Qty: 30 1RF ondansetron 4 mg tablet,disintegrating 4 mg PO TID Qty: 30 1RF Referrals: Gisele Ching MD [Primary Care Provider] - In 1 week Problem List Clinical Impression: Acute UTI Patient/Caregiver Discharge Instructions Print Language: Bruneian
[2024-06-07 22:10] VITALS: BP 155/88; PULSE 73; RESP 19; TEMP 36.6; O2SAT 98
[2024-06-07] MEDS: ALPRazoLAM 0.25 MG TABLET 0.5 MG PO (22:46)
[2024-06-08] VITALS (8 sets, daily range): BP systolic 122–170; BP diastolic 68–79; PULSE 70–87; RESP 15–19; TEMP 36.4–36.8; O2SAT 95–99
[2024-06-08] MEDS: amLODIPine BESYLATE 5 MG TABLET PO (07:32)
[2024-06-08] MEDS: AMIODARONE HCL 200 MG TABLET PO (07:32)
[2024-06-08] MEDS: CLOPIDOGREL BISULFATE 75 MG TABLET PO (07:32)
[2024-06-08] MEDS: APIXABAN 2.5 MG TABLET PO (07:33)
[2024-06-08] MEDS: HYDROcodone/APAP 5/325 TABLET 1 TAB PO (07:38)
[2024-06-08] MEDS: ONDANSETRON ODT 4 MG TABRAP PO ×2 (07:39→12:30)
--- NOTE | 2024-06-08 07:40 | PC.CC ---
ASWPascale met with the patient face to face, introduced self, role, and reason for visit. Patient appeared alert and oriented to self, location, and situation. Siva reports that she is NOT going home as she could no longer care for herself. ASW explained to patient that a referral would be sent for SNF placement; however, her [employer] had not regenerated and will need to be authorized by [employer]. ASW sent referral via [employer].
--- NOTE | 2024-06-08 12:41 | PD.EDADDENDU ---
Emergency Room Addendum <Diego Cohen MD - Last Filed: 06/08/24 13:21> Addendum Narrative: Patient 83-year-old who came here last night as a son is unable to care for this patient and they are requesting case management social worker for placement. This morning patient is alert awake smiling has no complaints was wondering about her urine result last night which was positive for pyuria and is started on cephalexin at this time. There is no nausea or vomiting or pain. She is worried about getting a yeast infection and we told her if she starts having burning itching of the skin down there to let us know and we will treat accordingly. Social service has been involved and they are looking at several facilities and working out the insurance matters at this time. Patient comfortable alert awake with no complaints <Thea Pizarro - Last Filed: 06/08/24 13:20> Addendum Narrative: 0600: Care assumed from Dr. Hawkins, the previous shift emergency physician. Past medical, surgical, social and family history reviewed. Vitals and home medications reviewed. I will assume the care of the patient at this time, pending SNF placement. Please refer to the emergency department record for history and examination from initial visit.? EMS notes reviewed by me. Nursing notes reviewed by me. Vital signs reviewed by me. [place] medical records reviewed by me. Patient 83-year-old who came here last night as a son is unable to care for this patient and they are requesting case management social worker for placement. This morning patient is alert awake smiling has no complaints was wondering about her urine result last night which was positive for pyuria and is started on cephalexin at this time. There is no nausea or vomiting or pain. She is worried about getting a yeast infection and we told her if she starts having burning itching of the skin down there to let us know and we will treat accordingly. Social service has been involved and they are looking at several facilities and working out the insurance matters at this time. Patient comfortable alert awake with no complaints
--- NOTE | 2024-06-08 13:56 | PC.CC ---
Patient was accepted by [facility], [facility] provided acceptance. Patient's nephew Louis to provide transportation to [facility] upon discharge.
[2024-06-08] MEDS: ALPRazoLAM 0.25 MG TABLET 0.5 MG PO (14:22)
[2024-06-08] MEDS: cephALEXin 250 MG CAPSULE 500 MG PO (14:23)
--- NOTE | 2024-06-08 15:34 | PC.NURSE ---
Report given to Amy; to continue care in room 118-A
== END 2024-06-08 15:37 | disposition skilled nursing facility (03) ==
PROVIDERS: Nurse Practitioner Primary Care; Emergency Provider Emergency Medicine; PCP Family Medicine
DX: N39.0 Urinary tract infection, site not specified (principal); M48.061 Spinal stenosis, lumbar region without neurogenic claudication; M43.16 Spondylolisthesis, lumbar region; M47.816 Spondylosis without myelopathy or radiculopathy, lumbar region; M51.360 Other intervertebral disc degeneration, lumbar region with discogenic back pain only
CPT/HCPCS: 36415; 72131; 80053; 81001; 85025; 87077; 87086; 87186; 99284; Q0162; A9270